=== PATIENT | female | born 1955 | race Caucasian/White ===

== ENCOUNTER 2025-08-29 08:19 | Outpatient (CLI) | payer MEDICARE, OTHER, SELFPAY ==
--- NOTE | ~2025-08-29 | DEXA_ITS ---
Bone Density Report Name: CLEMENTE MARTINEZ Age: 69 Sex: Female Ethnicity: White Date of : 1955 Indication: postmenopausal; screening for osteoporosis; inflammatory bowel disease; prior fracture; hysterectomy; Referring Provider: RAVEN FLORES Study: Bone densitometry was performed. Exam Date: August 29, 2025 Accession number: [id number] Bone Density: Region BMD T-score Z-score Classification AP Spine(L1-L4) 0.836 -1.9 0.3 Osteopenia Femoral Neck (Left) 0.519 -3.0 -1.1 Osteoporosis Total Hip (Left) 0.642 -2.5 -0.9 Osteoporosis Femoral Neck (Right) 0.507 -3.1 -1.2 Osteoporosis Total Hip (Right) 0.650 -2.4 -0.8 Osteopenia Total Hip Mean 0.646 -2.5 -0.9 Osteopenia World Health Organization criteria for BMD impression classify patients as: Normal (T-score at or above -1.0), Osteopenia (T-score between -1.0 and -2.5), or Osteoporosis (T-score at or below -2.5). 10-year Fracture Risk: FRAX not reported because: Some T-score for Spine Total or Hip Total or Femoral Neck at or below -2.5 Clinical Information Provided by Patient: Has had a low trauma fracture Has used the following medications: Vitamin D, Calcium Has the following medical conditions: Inflammatory bowel diseases, Hysterectomy Patient maximum height was 64 Menopause Age: 40 Onset of menses at age 11 Number of children 2 Impression: The patient has established osteoporosis, based on the Right Femoral Neck T-score and the existence of a prior fracture. The patient has risk factors, including: previous fracture. Discussion: HIGH RISK OF FRACTURE. BONE DENSITY IS UNDESIRABLY LOW AT ONE OR MORE SKELETAL SITES, CONSISTENT WITH POSTMENOPAUSAL OSTEOPOROSIS. This patient's lowest T-score, in a patient who has previously fractured, meets the World Health Organization's (WHO) criteria for severe osteoporosis. In untreated patients, the risk of osteoporotic fracture increases approximately two-fold for each 1.0 SD decrease in T-score. Low bone density is not the only risk factor for fracture; also consider factors such as patient's age, frailty or poor health, risk of falling, risk of injury, previous osteoporotic fracture, family history of osteoporosis, cigarette smoking, low body weight, etc. Not everyone with low bone mineral density has osteoporosis; osteomalacia and other metabolic bone disorders should also be considered. Patients who have osteoporosis should be evaluated for specific diseases and conditions (secondary causes) that may cause or contribute to bone loss. The [place] Association of Clinical Endocrinologists (AACE) and National Osteoporosis Foundation (NOF) recommend pharmacologic intervention for all postmenopausal women whose T-score is in this range. The patient should follow a healthful lifestyle (good nutrition with adequate calcium and vitamin D, and appropriate weight-bearing exercise). Follow-Up: Consider a repeat BMD and Vertebral Fracture Assessment (VFA) exam in 2 years or sooner if medically necessary, to reassess this patient's status. Reported by: YAMINI on 08/29/2025 8:44:00 AM. Reviewed, dictated and finalized at location A.
== END 2025-08-29 08:20 | disposition home or self-care (01) ==
LOC: MICIMG 08:20
PROVIDERS: PCP Family Medicine; Visit Provider Family Medicine
DX: M81.0 Age-related osteoporosis without current pathological fracture (principal); M85.88 Other specified disorders of bone density and structure, other site; M85.851 Other specified disorders of bone density and structure, right thigh
CPT/HCPCS: 77080

== ENCOUNTER 2025-08-29 09:04 | Outpatient (CLI) | payer MEDICARE, OTHER, SELFPAY ==
--- OUTSIDE RECORDS SUMMARY | 2025-08-29 09:48 | XMS_ITS | Clinical Summary ---
Author Organization [facility] Address [address] [place] [address] Phone Care Team Providers Care Tree Feller Name Role Phone Kia Morales Stephanie SMITH Primary Care Provider [phone] Allergies No known active allergies Medications aspirin EC 81 MG Tablet Delayed Response Take 81 mg by mouth. Active otherIndications :Prenori- shreel 0.625 Units by Other route. Indications : Prenori- shreel Active Calcium Carb-Cholecalcif jackeline (CALCIUM + D3) 600-200 MG-UNIT Tablet Take by mouth. Active Cetirizine HCl 10 MG Capsule Take by mouth. Active chlorthalidone (HYGROTON) 25 MG Tablet Take by mouth. 03/23/2014 Active Vitamin D3 (CHOLECALCIFEROL ) 5000 UNITS Tablet Take by mouth. Active estradiol (ESTRACE) 2 MG Tablet Take by mouth. 05/02/2014 Active nystatin-triamci nolone (MYCOLOG II) 208086-5.1 UNIT/GM-% Cream Apply. 05/09/2014 Act sonya Farrar-3 Fatty Acids (FISH OIL) 1200 MG Capsule Take by mouth. Active oxybutynin (DITROPAN) 5 MG Tablet Take by mouth. 04/06/2014 Active ketoconazole (NIZORAL) 2 % Shampoo 3 04/05/2016 Active ELIDEL 1 % Cream 3 04/05/2016 Ac tive Mirabegron ER 25 MG TABLET SR 24 HR Take by mouth. Active ENSTILAR 0.005-0.064 % Foam 08/21/2017 Active tolterodine (DETROL LA) 4 MG CAPSULE SR 24 HR Take 4 mg by mouth daily. 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 Not on file Not on file Not on kenneth e Last Filed Vital Signs Vital Sign Reading Time Taken Comments Blood Pressure 122/78 03/18/2018 10:02 AM CDT Pulse 68 03/18/2018 10:02 AM CDT Temperature - - Respiratory Rate 16 03/18/2018 10:02 AM CDT Oxygen Saturation 98% 03/18/2018 10:02 AM CDT Inhaled Oxygen Concentration - - Weight 55.3 kg (122 lb) 03/18/2018 10:02 AM CDT Height 162.6 cm (5' 4) 03/18/2018 10:02 AM CDT Body Mass Index 20.94 03/18/2018 10:02 AM CDT Plan of Treatment Health Maintenance Due Date Last Done Comments Hepatitis C Virus (HCV) Screening 1955 TdaP Immunization 1955 Cologuard 1998 Immunochemical Fecal Occult Blood 1998 Pneumococcal Immunization (5 0+ years) (1 of 1 - PCV) 2003 Zoster Immunization (1 of 2) 2003 Colonoscopy 04/05/2020 04/05/2010 Colorectal Cancer Screening 04/05/2020 Influenza Immunization (#1) 07/04/202508/03, 08/16/2015, 07/04/2013 SARS-COV-2 Immunization ( - season) 2025 07/31/2021, 01/08/2021, 12/11/2020 Respiratory Syncytial Virus (RSV) Immunization (Adult) (1 - 1-dose 75+ series) 2028 Mammogram Discontinued 02/18/2017, 02/14/2016 DEXA Bone Density Discontinued 03/13/2017 Hepatitis B Immunization Aged Out No longer eligible based on patient's age to complete this topic Human Papillomavirus (HPV) Immunization Aged Out No longer eligible based on patient's age to complete this topic Meningococcal Immunization (ACWY) Aged Out No longer eligible based on patient's age to complete this topic Rotavirus Immunization Aged Out No lo nger eligible based on patient's age to complete this topic Procedures Procedure Name Priority Date/Time Associated Diagnosis Comments [facility] BONE DENSITOMETRY AXIAL SKELETON Routine 03/13/2017 8:54 AM CDT Encounter for imaging to assess osteoporosis [facility] SCREENING BILATERAL DIGITAL W CAD Routine 02/18/2017 9:53 AM CDT Encounter for screening mammogram for malignant neoplasm of breast HM COLONOSCOPY Routine 04/05/2010 from Last 3 Months or Most Recently Relevant to Health Maintenance Results * [facility] BONE DENSITOMETRY AXIAL SKELETON (03/13/2017 8:54 AM CDT) Anatomical Region Laterality Modality BODY N/A Other 03/13/2017 2:20 PM CDT Impressions 03/13/2017 2:23 PM CDT IMPRESSION: 1. Low bone mass by WHO criteria. 2. The WHO fracture risk assessment tool (FRAX) indicates that the 10-year probability of a major osteoporotic fracture is 11.4% and the 10-year probability of a hip fracture is 2.1%. 3. Since 2013, there has been a 4.4% increase in bone mineral density in the lumbar spine and a 5.7% increase in bone mineral density in the left hip. Bone mineral density: Normal (T-score above or = -1.0) Low bone mass (T-score between -1.0 and -2.5) replaces the previously used term osteopenia Osteoporosis (T-score = or below -2.5) Medical evaluation for secondary causes of low bone mineral density may be appropriate. FRAX is a World Health Organization validated fracture risk assessment tool that calculates a person's 10 year probability of a major osteoporosis related fracture and hip fracture. According to the National Osteoporosis Foundation guidelines, postmenopausal women and men age 50 or older with low bone mass and a 10 year probability of a major osteoporosis related fracture = or greater than 20% or a 10 year probability of a hip fracture = or greater than 3% should be considered for treatment. For further information, including treatment recommendations, please refer to the 2013 ISCD Official Positions (http://www.iscd.org) and the NOF's Clinician's Guide to Prevention and Treatment of Osteoporosis (http://www.nof.org/professionals/clinical-guidelines) Narrative 03/13/2017 2:23 PM CDT EXAMINATION: DXA Bone Density Examination (Hip and Spine). HISTORY: 61-year-old post menopausal female, screening for osteoporosis. Current Height: 63 inches Maximum Height: 64 inches Weight: 128 pounds RISK FACTORS: None. COMPARISON(S): December 31, 2013 and November 20, 2011. 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 Left Hip Current Total BMD is 0.821 g/mj4C-sihvc is -1.5 Most recent prior Total BMD was 0.777 g/cm2 There has been a 5.7% increase in BMD which is statistically significant. Current femoral neck BMD is 0.712 g/ob1U-ujttb is -2.3 THIS IS AN ELECTRONICALLY VERIFIED REPORT 03/13/2017 2:20 PM: Justin Nieves M.D. Radiologist AB: RD Procedure Note Lino Doyle MD - 03/13/2017 EXAMINATION: DXA Bone Density Examination (Hip and Spine). HISTORY: 61-year-old post menopausal female, screening for osteoporosis. Current Height: 63 inches Maximum Height: 64 inches Weight: 128 pounds RISK FACTORS: None. COMPARISON(S): December 31, 2013 and November 20, 2011. 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 Left Hip Current Total BMD is 0.821 g/ei4W-flzax is -1.5 Most recent prior Total BMD was 0.777 g/cm2 There has been a 5.7% increase in BMD which is statistically significant. Current femoral neck BMD is 0.712 g/bh9L-eyrkc is -2.3 THIS IS AN ELECTRONICALLY VERIFIED REPORT 03/13/2017 2:20 PM: Justin Nieves M.D. Radiologist AB: RD IMPRESSION: 1. Low bone mass by WHO criteria. 2. The WHO fracture risk assessment tool (FRAX) indicates that the 10-year probability of a major osteoporotic fracture is 11.4% and the 10-year probability of a hip fracture is 2.1%. 3. Since 2013, there has been a 4.4% increase in bone mineral density in the lumbar spine and a 5.7% increase in bone mineral density in the left hip. Bone mineral density: Normal (T-score above or = -1.0) Low bone mass (T-score between -1.0 and -2.5) replaces the previously used term osteopenia Osteoporosis (T-score = or below -2.5) Medical evaluation for secondary causes of low bone mineral density may be appropriate. FRAX is a World Health Organization validated fracture risk assessment tool that calculates a person's 10 year probability of a major osteoporosis related fracture and hip fracture. According to the National Osteoporosis Foundation guidelines, postmenopausal women and men age 50 or older with low bone mass and a 10 year probability of a major osteoporosis related fracture = or greater than 20% or a 10 year probability of a hip fracture = or greater than 3% should be considered for treatment. For further information, including treatment recommendations, please refer to the 2013 ISCD Official Positions (http://www.iscd.org) and the NOF's Clinician's Guide to Prevention and Treatment of Osteoporosis (http://www.nof.org/professionals/clinical-guidelines) us Rachel Bolton Randy MANAGER HOS[facility], [facility] IMG DEXA ORDERABLES Rhonda l Result * [facility] SCREENING BILATERAL DIGITAL W CAD (02/18/2017 9:53 AM CDT) Anatomical Region Laterality Modality breast Bilateral Mammography 02/18/2017 9:34 AM CDT Narrative 02/19/2017 8:21 AM CDT - [facility] SCREENING BILATERAL DIGITAL W CAD BILATERAL DIGITAL SCREENING MAMMOGRAM WITH CAD WITH MEDIOLATERAL OBLIQUE CRANIOCAUDAL: 02/18/2017 The study was acquired using digital technology and interpreted from soft copy. Current study was also evaluated with ICAD version 7.2. CLINICAL: Routine screening. Patient has no complaints. No personal history of cancer. No family history of breast cancer. COMPARISONS: Comparison is made to exams dated: 02/14/2016, 01/03/2015, and 12/21/2013 [facility]. BREAST TISSUE:The tissue of both breasts is extremely dense, which lowers the sensitivity of mammography. FINDINGS: There are benign calcifications in both breasts. No significant masses, calcifications, or other findings are seen in either breast. There has been no significant interval change. IMPRESSION: BI-RAD 2 BENIGN There is no mammographic evidence of malignancy. A 1 year screening mammogram is recommended. The patient has been or will be contacted. The patient will be entered into a reminder system with a target due date of 1 year for her next screening exam. Electronically signed by: Helen cleveland/radha:02/18/2017 13:39:27 Auto Carrier Driver: Romi BAUER(Stephanie)([place]), [facility] letter sent: Normal Exam Reading location: [facility] BI-RADS: 2 Benign Procedure Note Helen Perez MD - 02/19/2017 - [facility] SCREENING BILATERAL DIGITAL W CAD BILATERAL DIGITAL SCREENING MAMMOGRAM WITH CAD WITH MEDIOLATERAL OBLIQUE CRANIOCAUDAL: 02/18/2017 The study was acquired using digital technology and interpreted from soft copy. Current study was also evaluated with ICAD version 7.2. CLINICAL: Routine screening. Patient has no complaints. No personal history of cancer. No family history of breast cancer. COMPARISONS: Comparison is made to exams dated: 02/14/2016, 01/03/2015, and [facility]. BREAST TISSUE:The tissue of both breasts is extremely dense, which lowers the sensitivity of mammography. FINDINGS: There are benign calcifications in both breasts. No significant masses, calcifications, or other findings are seen in either breast. There has been no significant interval change. IMPRESSION: BI-RAD 2 BENIGN There is no mammographic evidence of malignancy. A 1 year screening mammogram is recommended. The patient has been or will be contacted. The patient will be entered into a reminder system with a target due date of 1 year for her next screening exam. Electronically signed by: Helen cleveland/radha:02/18/2017 13:39:27 Auto Carrier Driver: Romi BAUER(Stephanie)(M), [facility] letter sent: Normal Exam Reading location: [facility] BI-RADS: 2 Benign us Rachel Padilla APRN, [employer] [facility] MAMMO ORDERABLES Fin al Result * [facility] COLONOSCOPY (04/05/2010) us Clifford Hu Jr., MD PROCEDURE/MINOR GUS GICAL ORDERABLES Final Result from Last 3 Months or Most Recently Relevant to Health Maintenance Care Teams Tree Feller Relationship Specialty Start Date End Date Kia Morales APRN [address] [place] [address] PCP - General Family Medicine 02/14/17
--- OUTSIDE RECORDS SUMMARY | 2025-08-29 09:48 | XMS_ITS | Encounter Summary ---
Author Organization [facility] Address [address] [place] [id number] Care Team Providers Care Audio Visual Equipment Rental Clerk Name Role Phone Yara Schneider MD Primary Care Provider [phone] Mauri Roberts MD Primary Care Provider [phone] Encounter Details Date Type Department Care Team (Late st Contact Info) Description 12/02/2022 Zafgen Message Enc [facility] Medical Group Family Medicine [facility] [address] [place] [address] Yara Schneider MD [address] [place] [address] Ears Social History Tobacco Use Types Packs/Day Years Used Date Smoking Tobacco: Never Smokeless Tobacco: Never Alcohol Use Standard Drinks/Week Comments Yes 1.7 (1 standard drink = 0.6 oz p ure alcohol) Drink socially AUDIT-C Answer Date Recorded Frequency of Alcohol Consumption 2-3 times a wee k 09/28/2019 Average Number of Drinks 1 or 2 019 Frequency of Binge Drinking Not on file 09/04 PHQ-2 Answer Date Recorded Patient Health Questionnaire-2 Score 0 12/06/2022 Comments No Sex and Gender Information Value Date Recorded Sex Assigned at Female 08/21/2023 3:11 PM CDT Legal Sex Female 3:36 PM SOCIAL SERVICE MANAGER Gender Identity Female 11/15/2021 12:05 PM SOCIAL SERVICE MANAGER Sexual Orientation Straight 11/15/2021 12 :05 PM SOCIAL SERVICE MANAGER COVID-19 Exposure Response Date Recorded In the last 10 days, have yo u been in contact with someone who was confirmed or suspected to have Coronavirus/COVID-19? No / Unsure 12/03/2022 8:17 AM SOCIAL SERVICE MANAGER documented as of this encounter Plan of Treatment Not on file documented as of this encounter Visit Diagnoses Not on filedocumented in this encounter Additional Health Concerns Assessment Noted Time PHQ-9 Depression Total Score: 3 11/21/19 23 9:28 AM SOCIAL SERVICE MANAGER documented as of this encounter Care Teams Audio Visual Equipment Rental Clerk Relationship Specialty Start Date End Date Yara Schneider MD PCP - General FAMILY PRACTICE 10/02/20 09/30/24 Mauri Roberts MD [address] [place] [id number] PCP - General FAMILY PRACTICE 11/09/24 documented as of this encounter
--- OUTSIDE RECORDS SUMMARY | 2025-08-29 09:48 | XMS_ITS | Clinical Summary ---
Author Organization [facility] Address [facility] [place] [address] Care Team Providers Care Sports Teacher Name Role Phone Raven Flores MD Primary Care Provider [phone] Allergies No known active allergies Medications Nutritional Supplements (NUTRITIONAL SUPPLEMENT OR) Take 1 tablet by mouth 2 (two) times a day. Restore eye promise Active omeprazole (PRILOSEC) 40 MG capsule Take 1 capsule (40 mg total) by mouth daily. 3 Active calcium-vitamin D-vitamin K (VIACTIV) 500-500-40 MG-UNT-MCG Chew Tab Chew 1 tablet by mouth daily. Active fexofenadine (WENCESLAO ALLERGY) 180 MG tabletIndications:C hronic cough,Allergic rhinitis, unspecified seasonality, unspecified trigger Take 1 tablet (180 mg total) by mouth daily. 30 tablet 3 Active azelastine (ASTELIN) 0.1 % nasal sprayIndications:Ch ronic cough,Allergic rhinitis, unspecified seasonality, unspecified trigger USE 1 SPRAY IN EACH NOSTRIL TWICE DAILY DIRECTED 30 mL 5 4 Active FLUoxetine (PROZAC) 40 MG capsuleIndications: Mild major depression Take one 40mg tab with one 20mg tab for total of 60mg PO QD 90 capsule 1 4 Active FLUoxetine (PROZAC) 20 MG capsuleIndications: Mild major depression Take one 20mg tab with one 40mg tab for total of 60mg PO QD 90 capsule 1 4 Active atorvastatin (LIPITOR) 20 MG tabletIndications:H yperlipidemia, unspecified hyperlipidemia type TAKE 1 TABLET(20 MG) BY MOUTH EVERY NIGHT AT BEDTIME 90 tablet 1 4 Active tolterodine LA (DETROL LA) 4 MG 24 hr capsuleIndications: Overactive bladder TAKE 1 CAPSULE(4 MG) BY MOUTH DAILY 90 capsule 1 4 Active Active Problems Problem Noted Date Diagnosed Date Closed displaced oblique fra cture of shaft of left humerus with delayed healing 11/11/2023 Hiatal hernia 04/16/2023 Acid reflux 12/17/2022 Cough 05/16/2022 Hyperlipidemia, unspecified hyperlipidemia type 09/28/2019 Allergic rhinitis, unspecifi ed seasonality, unspecified trigger 09/28/2019 Macular degeneration, unspec ified laterality, unspecified type 09/28/2019 Overactive bladder 09/28/2019 Other allergic contact dermatitis 04/27/2019 Osteoporosis 01/04/2014 Overview (05/19/2020): Osteoporosis Hypertension 01/06/2013 Overview (05/19/2020): Hypertension Angioedema 01/06/2013 Overview (05/19/2020): Angioedema Immunizations Immunization Administration Dates Next Due Arexvy Respiratory Syncytial Virus (RSV, adjuvanted) 0.5 mL, PF 08/21/2023 Flucelvax 6 Months+ (Prefill ed Syringe) 08/04/2018,08/20/2017 Fluzone High Dose - >Age 65 (Prefilled Syringe) 07/17/2023,07/29/2020,07/20/2019 Influenza (Generic) 07/14/2019, 4,08/04/2013,2012 Influenza Adult (Generic) 08/25/2022,,08/16/2015,2012 MMR (Generic) 04/14/2019 MMR (MMRII) 03/08/2019 Measles, Mumps & Rubella Vac Sc 03/08/2019 Jkoyewz-Hbycv-Cvfskav-Varicell Sc Inj 04/14/2019 PFIZER COVID-19 (GUZMAN CAP), MRNA, LNP-S, PF, 30 MCG/0.3 ML CHANTAL-SUCROSE, IM 03/12/2022 PFIZER COVID-19 (ORIGINAL FORMULATION, PURPLE CAP) mRNA, LNP-S, PF, 30 MCG/0.3 ML DOSE 07/31/2021,01/08/2021,12/11/2020 Pneumococcal (Pneumovax 23) 07/29/2020, 9 Pneumococcal (Prevnar 20) 08/25/2022 Shingrix 06/23/2019,04/14/2019 Td (TDVAX) 09/28/2019 Tetanus/Diptheria 09/28/2019 Family History Medical History Relation Comments Heart Disease Mother Many stints due to smoking Miscarriages / Stillbirths Mother Glaucoma Sister Heart Disease Sister Relation Status Comments Mother Sister Social History Tobacco Use Types Packs/Day Years Used Date Smoking Tobacco: Never Passive Smoke Exposure: Never Smokeless Tobacco: Never Tobacco Cessation:Counseling Given: Yes Comments:Never Smoked Alcohol Use Standard Drinks/Week Comments Yes 1.7 (1 standard drink = 0.6 oz p ure alcohol) Drink socially AUDIT-C Answer Date Recorded Frequency of Alcohol Consumption 2-3 times a wee k 09/28/2019 Average Number of Drinks 1 or 2 019 Frequency of Binge Drinking Not on file 09/04 PHQ-2 Answer Date Recorded Patient Health Questionnaire-2 Score 0 01/19/2024 Comments No Sex and Gender Information Value Date Recorded Sex Assigned at Female 08/21/2023 3:11 PM CDT Legal Sex Female 3:36 PM GPS NAVIGATION INSTALLER Gender Identity Female 11/15/2021 12:05 PM GPS NAVIGATION INSTALLER Sexual Orientation Straight 11/15/2021 12 :05 PM GPS NAVIGATION INSTALLER Last Filed Vital Signs Vital Sign Reading Time Taken Comments Blood Pressure 140/80 03/15/2024 11:30 AM CDT Pulse 73 03/15/2024 11:20 AM CDT Temperature 36.2 C (97.2 F) 03/15/2024 11:20 AM CDT Respiratory Rate 16 03/15/2024 11:20 AM CDT Oxygen Saturation 99% 03/15/2024 11:20 AM CDT ra Inhaled Oxygen Concentration - - Weight 59.9 kg (132 lb) 03/15/2024 11:20 AM CDT Height 162.6 cm (5' 4) 03/15/2024 11:20 AM CDT Body Mass Index 22.66 03/15/2024 11:20 AM CDT Plan of Treatment Health Maintenance Due Date Last Done Comments Annual Medicare Wellness Visit 2018 DTaP, Tdap and Td Vaccines (1 - Tdap) 09/29/2019 09/28/2019, 09/28/2019 PHQ-2 (Physician [place]) 11/03/2024 01/19/2024 COVID-19 Vaccine ( season) 2025 07/28/2023, 02/28/2023, 08/25/2022, Additional history exists Influenza Adult (#1) 2025 07/17/2023, 08/25/2022, 07/26/2021, Additional history exists Mammogram Screening 01/24/2027 01/24/2025, 01/21/2024, 12/03/2022, Additional history exists Colorectal Cancer Screening Colonoscopy (10 Years) 07/13/2034 07/13/2024, 07/13/2024, 07/23/2021 Zoster Vaccines Completed 06/23/2019, 04/14/2019 Pneumococcal Vaccine: 50+ Years Completed 08/25/2022, 07/29/2020, 06/23/2019 Dexa Scan (General) Completed 12/03/2022, 03/13/2017, 03/13/2017 RSV Immunization or 60+ Years Completed 08/21/2023 Hepatitis C Completed 01/13/2024 Hepatitis A Vaccines Aged Out No long er eligible based on patient's age to complete this topic Meningococcal B Vaccine Aged Out No l onger eligible based on patient's age to complete this topic Meningococcal Vaccine Aged Out No vero neel eligible based on patient's age to complete this topic RSV Immunizations Under 20 Months Aged Out No longer eligible based on patient's age to complete this topic Medical Devices Implanted Type Area Sales And Marketing Professional Device Identifier Shelf Expiration Date Model / Serial / Lot 12 Hole Plate Implanted:Qty: 1 on 11/14/2023 by Marshall Lynn MD at [facility] Plate Left: Humerus DEPUY SY[employer]ES [id number] / / Non-Locking Screw Implanted:Qty: 2 on 11/14/2023 by Marshall Lynn MD at [facility] Screw Left: Humerus DEPUY 204.820 / / Non-Locking Screw Implanted:Qty: 3 on 11/14/2023 by Marshall Lynn MD at [facility] Screw Left: Humerus DEPUY SYNTHES 204.822 / / Non-Locking Screw Implanted:Qty: 2 on 11/14/2023 by Marshall Lynn MD at [facility] Screw Left: Humerus DEPUY SYNTHES 204.826 / / Non-Locking Screw Implanted:Qty: 1 on 11/14/2023 by Marshall Lynn MD at [facility] Screw Left: Humerus DEPUY SYNTHES 204.830 / / Non-Locking Screw Implanted:Qty: 1 on 11/14/2023 by Marshall Lynn MD at [facility] Screw Left: Humerus DEPUY SYNTHES 204.824 / / Procedures Procedure Name Priority Date/Time Associated Diagnosis Comments MG SCREENING W FRANSISCO HOLLIE DIGI Routine 01/24/2025 2:12 PM CDT Visit for screening mammogram COLONOSCOPY GENERIC (SCAN ORDER) 07/13/2024 HEPATITIS C ANTIBODY W/RFX TO HCV RNA Routine 01/13/2024 9:11 AM CDT Encounter for hepatitis C screening test for low risk patient BONE DENSITY/DEXA Routine 12/03/2022 9:5 0 AM GPS NAVIGATION INSTALLER Multiple closed fractures of pelvis without disruption of pelvic ring with routine healing, subsequent encounter Osteopenia of multiple sites from Last 3 Months or Most Recently Relevant to Health Maintenance Results * MG SCREENING W FRANSISCO HOLLIE DIGI (01/24/2025 2:12 PM CDT) Anatomical Region Laterality Modality Breast Bilateral Mammography 01/24/2025 2:24 PM CDT Impressions 01/24/2025 3:04 PM CDT ===== IMPRESSION: ===== 1. Stable mammographic appearance with no new findings to suggest malignancy in either breast. Assessment: ACR BI-RADS 2 - BENIGN FINDING(S) Recommendation: 1:Routine Screening Bilateral Comments: Ordered By: RAVEN FLORES Interpreted By: Giovani Crouch MD, 01/24/2025 2:24 PM Narrative 01/24/2025 3:[address] PM [address] [address] Examination: Digital bilateral screening mammogram with 3D Tomosynthesis Exam Date/Time: 01/24/2025 1:58 PM Reason For Exam: scr No prior breast procedures. No personal or family history of breast cancer. No current complaints. Comparison: Mammograms from 01/21/2024 12/03/2022 11/22/2021 Technique: Digital screening mammography of both breasts was performed in addition to 3-D Tomosynthesis technique. This study was read with the assistance of a computer-aided detection system. Tissue density: The breasts are heterogeneously dense, which may obscure small masses. Findings: Benign round calcifications again seen bilaterally. No suspicious interval change in parenchymal pattern from prior studies. There is no new focal asymmetry, dominant mass lesion, area of skin thickening, or cluster of suspicious appearing calcifications in either breast to suggest malignancy. us Raven Flores MD MAMMO Final Result * COLONOSCOPY GENERIC (SCAN ORDER) (07/13/2024) 07/13/2024 [facility] Scanned SCANNING Final Resu lt * HEPATITIS C ANTIBODY W/RFX TO HCV RNA ([facility] ONLY) (01/13/2024 9:11 AM CDT) HEPATITIS C AB NON-REACT SEKOU NON-REACT SEKOU [facility] Comment: HCV antibody was non-reactive. There is no laboratory evidence of HCV infection. In most cases, no further action is required. However, if recent HCV exposure is suspected, a test for HCV RNA (test code 51446) is suggested. For additional information please refer to http://education.numberFire/faq/GEA55k4 (This link is being provided for informational/ educational purposes only.) 01/13/2024 9:11 AM CDT 01/13/2024 9:11 AM CDT Narrative [facility] [place] [facility] - 01/14/2024 4:15 AM CDT FASTING:YES FASTING: YES Resulting Agency Comment Performing Organization Information: Site ID: [place] Name: [facility] Address: [address] [place] [address] Director: Eve Medina MD Yara Schneider MD LABORATORY Final Result [facility] [place] [facility] [address] [place] [address], * BONE DENSITY/DEXA (12/03/2022 9:50 AM GPS NAVIGATION INSTALLER) Anatomical Region Laterality Modality Bone Mammography 12/03/2022 9:59 AM GPS NAVIGATION INSTALLER Impressions 12/03/2022 10:00 AM GPS NAVIGATION INSTALLER Impression: Osteopenia of the spine. Osteoporosis of the bilateral femoral necks. Fracture risk is high. Treatment is advised. Ordered By: YARA SCHNEIDER Interpreted By: Nasim Foster Jr, MD, 12/03/2022 9:59 AM Narrative 12/03/2022 10:00 AM GPS NAVIGATION INSTALLER Date: 12/03/2022. Examination: DEXA Bone densitometry. Comparison: No comparisons. Clinical history: Osteoporosis screening. History of pelvic fractures. Technique: DEXA bone minimal density evaluation was performed in the AP projection over the lumbar spine and over both hips in the AP projection utilizing standard imaging techniques. Assessment: The BMD measured at the AP spine L1-L4 is 0.909 g/cm2 with a T-score of -1.3 and a Z-Score of 0.8. The patient is considered osteopenic according to World Health Organization (WHO) criteria. Bone density is between 10 and 25% below young normal. Fracture risk is moderate. Treatment is advised. The BMD measured at the femur total left is 0.663 g/cm2 with a T-score of -2.3 and a Z-Score of -0.8. The bone mineral density for the neck is 0.530 g/sq cm with a T score of -2.9 which is osteoporotic in this region. Osteopenia and near osteoporosis for the total bone mineral density of the left hip. The 10 year fracture risk for major osteoporotic fracture is 24%. The 10 year fracture risk for hip fracture is 6.8%. The BMD measured at the femur total right is 0.733 g/cm2 with a T-score of -1.7 and aZ-Score of -0.3. The patient is considered osteopenic according to World Health Organization (WHO) criteria. Bone density is between 10 and 25% below young normal. Fracture risk is moderate. Treatment is advised. However, the bone mineral density for the neck is 0.490 g/sq cm with a T score of -3.2. This is osteoporotic in this region. The 10 year fracture risk for major osteoporotic fracture is 29%. The 10 year fracture risk for hip fracture is 10%. Recommendations: All patients should ensure an adequate intake of dietary calcium and vitamin D. The NOF recommend adults under the age of 50 need 1000 mg of calcium and 400-800 IU of vitamin D daily. Effective therapy for the prevention and treatment of osteoporosis include biphosphonates. Follow-up: People with diagnosed cases of osteoporosis or at high risk for fracture should have regular bone mineral density test. For patients eligible for Medicare, routine testing is allowed once every 2 years. Testing frequency can be increased to one year for patients who have rapidly progressing disease, those who are receiving or discontinuing medical therapy to restore bone mass, or have additional risk factors. Based on these results, a followup exam is recommended in November 2023 Procedure Note Cristo Spears MD / Nasim Foster MD - 12/03/2022 Date: 12/03/2022. Examination: DEXA Bone densitometry. Comparison: No comparisons. Clinical history: Osteoporosis screening. History of pelvic fractures. Technique: DEXA bone minimal density evaluation was performed in the APprojection over the lumbar spine and over both hips in the AP projectionutilizing standard imaging techniques. Assessment: The BMD measured at the AP spine L1-L4 is 0.909 g/cm2 with a T-score of-1.3 and a Z-Score of 0.8. The patient is considered osteopenicaccording to World Health Organization (WHO) criteria. Bone density isbetween 10 and 25% below young normal. Fracture risk is moderate.Treatment is advised. The BMD measured at the femur total left is 0.663 g/cm2 with a T-score of-2.3 and a Z-Score of -0.8. The bone mineral density for the neck is 0.530g/sq cm with a T score of -2.9 which is osteoporotic in this region.Osteopenia and near osteoporosis for the total bone mineral density of theleft hip. The 10 year fracture risk for major osteoporotic fracture is24%. The 10 year fracture risk for hip fracture is 6.8%. The BMD measured at the femur total right is 0.733 g/cm2 with a T-score of-1.7 and aZ-Score of -0.3. The patient is considered osteopenicaccording to World Health Organization (WHO) criteria. Bone density isbetween 10 and 25% below young normal. Fracture risk is moderate.Treatment is advised. However, the bone mineral density for the neck is0.490 g/sq cm with a T score of -3.2. This is osteoporotic in this region.The 10 year fracture risk for major osteoporotic fracture is 29%. The 10year fracture risk for hip fracture is 10%. Recommendations: All patients should ensure an adequate intake of dietary calcium andvitamin D. The NOF recommend adults under the age of 50 need 1000 mg ofcalcium and 400-800 IU of vitamin D daily. Effective therapy for theprevention and treatment of osteoporosis include biphosphonates. Follow-up: People with diagnosed cases of osteoporosis or at high risk for fractureshould have regular bone mineral density test. For patients eligible forMedicare, routine testing is allowed once every 2 years. Testing frequencycan be increased to one year for patients who have rapidly progressingdisease, those who are receiving or discontinuing medical therapy torestore bone mass, or have additional risk factors. Based on these results, a followup exam is recommended in November 2023 Impression: Osteopenia of the spine. Osteoporosis of the bilateral femoral necks.Fracture risk is high. Treatment is advised. Ordered By: YARA SCHNEIDER Interpreted By: Nasim Foster Jr, MD, 12/03/2022 9:59 AM Yara Schneider MD DEXA Final Result from Last 3 Months or Most Recently Relevant to Health Maintenance Insurance MEDICARE [employer] Care Teams Sports Teacher Relationship Specialty Start Date End Date Raven Flores MD [address] [place] [address] PCP - General FAMILY PRACTICE 11/09/24
--- OUTSIDE RECORDS SUMMARY | 2025-08-29 09:49 | XMS_ITS | Encounter Summary ---
Author Organization [facility] Address [address] [facility] [place] [address] Care Team Providers Care Inspector Barrel Name Role Phone Wally Carranza MD Primary Care Provider Unav ailable Encounter Details Date Type Department Care Team (Late st Contact Info) Description 12/24/2018 Lab Requisition [facility] [address] [facility] [place] [address] Amanda De La Rosa MD [address] [place] [address] Social History Tobacco Use Types Packs/Day Years Used Date Smoking Tobacco: Never Smokeless Tobacco: Never Alcohol Use Standard Drinks/Week Comments Yes 0 (1 standard drink = 0.6 oz pur e alcohol) social Comments No Sex and Gender Information Value Date Recorded Sex Assigned at Female 11/01/2021 2:46 PM CURLING MACHINE OPERATOR Legal Sex Female 9:27 AM CDT Gender Identity Female 11/01/2021 2:46 PM CURLING MACHINE OPERATOR Sexual Orientation Straight 11/01/2021 2: 46 PM CURLING MACHINE OPERATOR documented as of this encounter Plan of Treatment Not on file documented as of this encounter Procedures Procedure Name Priority Date/Time Associated Diagnosis Comments DERMATOPATH TECHNICAL REPORT Routine 12/23/2018 12:00 AM CURLING MACHINE OPERATOR documented in this encounter Results * DERMATOPATH TECHNICAL REPORT (12/23/2018 12:00 AM CURLING MACHINE OPERATOR) Case Report Dermatopathology Report Case: [id number] Authorizing Provider: Amanda De La Rosa MD Collected: 12/23/2018 12:00 AM Pathologist: Kenterll Nj MD Received: 12/24/2018 08:03 AM Specimen: Skin, right preauricular 9 5:37 PM CURLING MACHINE OPERATOR DERMATOPATHOLOGY LABORATORY Addendum 1 At the request of the diagnosing physician, the technical component for PAS was performed by [facility] Dermatopathology Laboratory. 9 5:37 PM [facility] DERMATOPATHOLOGY LABORATORY Addendum electronically signed by Kentrell Nj MD on 12/29/2018 at 1737 CURLING MACHINE OPERATOR Clinical History [place] scaly patches @ eyelids and ears, ACD, CTD, photo drug. 9 5:37 PM [facility] DERMATOPATHOLOGY LABORATORY Gross Description Specimen A: Received is one formalin filled container labeled with the patient's name and designated right preauricular. The specimen consists of a punch measuring [id number]. Jar 0. [facility] Dermatopathology Laboratory performed the technical component only. 9 5:37 PM [facility] DERMATOPATHOLOGY LABORATORY Embedded Images 9 5:37 PM [facility] DERMATOPATHOLOGY LABORATORY DISCLAIMER An external and internal positive and negative controls are appropriate for the histochemical, immunohistochemical and immunofluorescence stain(s) in this case (if any), except where stated explicitly. The performance characteristics of the stain(s) cited in this report were developed and its performance characteristic determined by the Dermatopathology Laboratory at [facility], directed by Dr. Tamara Nj. These tests need not be, and therefore are not, approved by the [place] Food and Drug Administration. The tests are used for clinical purposes. 9 5:37 PM CURLING MACHINE OPERATOR DERMATOPATHOLOGY LABORATORY at 1543 CURLING MACHINE OPERATOR Pathology/Cytolog y TISSUE SPECIMEN FROM SKIN / Unknown 12/23/2018 12/24/2018 8:03 AM CURLING MACHINE OPERATOR Amanda De La Rosa MD LAB - PATHOLOGY/CYTOLOGY ORD ERABLES Edited Result - Final DERMATOPATHOLOGY LABORATORY [facility] - Department of Dermatology [address] [place] [address], 5th Floor Lab [address] [phone] documented in this encounter Visit Diagnoses Not on filedocumented in this encounter Care Teams Inspector Barrel Relationship Specialty Start Date End Date Wally Carranza MD PCP - General 04/27/19 documented as of this encounter
--- OUTSIDE RECORDS SUMMARY | 2025-08-29 09:49 | XMS_ITS | Encounter Summary ---
Author Organization [facility] Address [address] [place] [address] Care Team Providers Care Digital Sales Assistant Name Role Phone Yara Schneider MD Primary Care Provider [phone] Mauri Roberts MD Primary Care Provider [phone] Encounter Details Date Type Department Care Team (Late st Contact Info) Description 04/28/2022 TheFriendMail Message Enc [facility] Medical Group Family Medicine [facility] [address] [place] [address] Yara Schneider MD [address] [place] [address] Fluoxetine Social History Tobacco Use Types Packs/Day Years [...] on file 09/04 PHQ-2 Answer Date Recorded PHQ-2 Score - If the patient scores above 3, please move on to questions 3-9 2 05/01/2022 Comments No Sex and Gender Information Value Date Recorded Sex Assigned at Female 08/21/2023 3:11 PM CDT Legal Sex Female 3:36 PM CAUSTIC ROOM OPERATOR Gender Identity Female 11/15/2021 12:05 PM CAUSTIC ROOM OPERATOR Sexual Orientation Straight 11/15/2021 12 :05 PM CAUSTIC ROOM OPERATOR COVID-19 Exposure Response Date Recorded In the last 10 days, have yo u been in contact with someone who was confirmed or suspected to have Coronavirus/COVID-19? No / Unsure 04/12/2022 8:22 AM CDT documented as of this encounter Progress Notes * Yara Schneider MD - 04/30/2022 2:57 PM CDT Video visit this week on Fri or please. Thanks! ~Dr Gutierrez documented in this encounter Plan of Treatment Not on file documented as of this encounter Visit Diagnoses Not on filedocumented in this encounter Additional Health Concerns Assessment Noted Time PHQ-9 Depression Total Score: 6 04/12/20 22 8:27 AM CDT documented as of this encounter Care Teams Digital Sales Assistant Relationship Specialty Start Date End Date Yara Schneider MD PCP - General FAMILY PRACTICE 10/02/20 09/30/24 Mauri Roberts MD [address] [place] [address] PCP - General FAMILY PRACTICE 11/09/24 documented as of this encounter
--- OUTSIDE RECORDS SUMMARY | 2025-08-29 09:49 | XMS_ITS | Encounter Summary ---
Author Organization [facility] Address [address] [place] [address] Care Team Providers Care Mortising Machine Operator Name Role Phone Yara Schneider MD Primary Care Provider [phone] Mauri Roberts MD Primary Care Provider [phone] Encounter Details Date Type Department Care Team (Latest Contact Info) Description 02/24/2024 Milestone [employer] Message Enc [facility] Medical Group Multispecialty Care - [facility] [address] [place] [address] Garth Mac DO [address] [place], [place] [address] Physical Therapy Social History Tobacco Use Types Packs/Day Years Used Date Smoking Tobacco: Never Passive Smoke Exposure: Never Smokeless Tobacco: Never Comments:Never Smoked Alcohol Use Standard Drinks/Week Comments [...] PM CDT Legal Sex Female 3:36 PM QM NURSE Gender Identity Female 11/15/2021 12:05 PM QM NURSE Sexual Orientation Straight 11/15/2021 12 :05 PM QM NURSE documented as of this encounter Plan of Treatment Not on file documented as of this encounter Visit Diagnoses Not on filedocumented in this encounter Additional Health Concerns Assessment Noted Time PHQ-9 Depression Total Score: 0 01/19/20 24 9:32 AM CDT documented as of this encounter Care Teams Mortising Machine Operator Relationship Specialty Start Date End Date Yara Schneider MD PCP - General FAMILY PRACTICE 10/02/20 09/30/24 Mauri Roberts MD [address] [place] [address] PCP - General FAMILY PRACTICE 11/09/24 documented as of this encounter
--- OUTSIDE RECORDS SUMMARY | 2025-08-29 09:49 | XMS_ITS | Encounter Summary ---
Author Organization [facility] Address [address] [place] [address] Care Team Providers Care Medical Appointment Clerk Name Role Phone Yara Schneider MD Primary Care Provider [phone] Mauri Roberts MD Primary Care Provider [phone] Encounter Details Date Type Department Care Team (Late st Contact Info) Description 01/02/2024 Immunetics Message Enc [facility] Medical Group Orthopedic & Sports Medicine - [place] [address] [place] [address] Tomas, [facility] Provider Bone Stimulator Social History Tobacco Use Types Packs/Day Years Used Date Smoking Tobacco: Never Passive Smoke Exposure: Never Smokeless Tobacco: Never Comments:Never Smoked Alcohol Use Standard Drinks/Week Comments Yes 1.7 (1 standard drink = 0.6 oz p ure alcohol) Drink socially AUDIT-C Answer Date Recorded Frequency of Alcohol Consumption 2-3 times a solitario turner 09/28/2019 Average Number of Drinks 1 or 2 019 Frequency of Binge Drinking Not on file 09/04 PHQ-2 Answer Date Recorded Patient Health Questionnaire-2 Score 1 11/06/2023 Comments No Sex and Gender Information Value Date Recorded Sex Assigned at Female 08/21/2023 3:11 PM CDT Legal Sex Female 3:36 PM CANVAS GOODS MAKER Gender Identity Female 11/15/2021 12:05 PM CANVAS GOODS MAKER Sexual Orientation Straight 11/15/2021 12 :05 PM CANVAS GOODS MAKER documented as of this encounter Plan of Treatment Not on file documented as of this encounter Visit Diagnoses Not on filedocumented in this encounter Additional Health Concerns Assessment Noted Time PHQ-9 Depression Total Score: 3 10/06/20 23 8:54 AM CANVAS GOODS MAKER documented as of this encounter Care Teams Medical Appointment Clerk Relationship Specialty Start Date End Date Yara Schneider MD PCP - General FAMILY PRACTICE 10/02/20 09/30/24 Mauri Roberts MD [address] [place] [address] PCP - General FAMILY PRACTICE 11/09/24 documented as of this encounter
--- OUTSIDE RECORDS SUMMARY | 2025-08-29 09:49 | XMS_ITS | Encounter Summary ---
Author Organization [facility] Address [address] [facility] [place] [address] Care Team Providers Care Poker Supervisor Name Role Phone Wally Carranza MD Primary Care Provider Unav ailable Encounter Details Date Type Department Care Team (Late st Contact Info) Description 03/17/2020 Lab Requisition [facility] [address] [facility], [place] [address] Amanda De La Rosa MD [address] [place] [address] Social History Tobacco Use Types Packs/Day Years Used Date Smoking Tobacco: Never Smokeless Tobacco: Never Alcohol Use Standard Drinks/Week Comments Yes 0 (1 standard drink = 0.6 oz pur e alcohol) social Comments No Sex and Gender Information Value Date Recorded Sex Assigned at Female 11/01/2021 2:46 PM SKILLED NURSING FACILITY COUNSELOR Legal Sex Female 9:27 AM CDT Gender Identity Female 11/01/2021 2:46 PM SKILLED NURSING FACILITY COUNSELOR Sexual Orientation Straight 11/01/2021 2: 46 PM SKILLED NURSING FACILITY COUNSELOR documented as of this encounter Plan of Treatment Not on file documented as of this encounter Procedures Procedure Name Priority Date/Time Associated Diagnosis Comments DERMATOPATHOLOGY Routine 03/16/2020 12:0 0 AM CDT documented in this encounter Results * DERMATOPATHOLOGY (03/16/2020 12:00 AM CDT) Case Report Dermatopathology Report Case: [id number] Authorizing Provider: Amanda De La Rosa MD Collected: 03/16/2020 12:00 AM Ordering Location: [facility] Lab Received: 03/17/2020 11:43 AM Pathologist: Jami Alejo MD Specimen: Skin, right jawline 0 1:20 PM CDT DERMATOPATHOLOGY LABORATORY Final Diagnosis Specimen A. SKIN, right jawline: RUPTURED EPIDERMOID CYST (L72.0) 0 1:20 PM CDT DERMATOPATHOLOGY LABORATORY at 1320 CDT Clinical History EIC R/O atypia, growing, painful. Cystic nodule. 0 1:20 PM CDT DERMATOPATHOLOGY LABORATORY Gross Description Specimen A: Received is one formalin filled container labeled with the patient's name and designated right jawline. The specimen consists of a punch measuring [id number], bisected and submitted with 2 pieces measuring [id number] & [id number]. Jar 0. 0 1:20 PM CDT DERMATOPATHOLOGY LABORATORY Microscopic Description Specimen A. SKIN, right jawline: Within the dermis, there is an infiltrate composed of lymphocytes and histiocytes, including multinucleated type giant cells. Some histiocytes contain flakes of material consistent with keratin. 0 1:20 PM CDT DERMATOPATHOLOGY LABORATORY Disclaimer An external and internal positive and negative controls are appropriate for the histochemical, immunohistochemical and immunofluorescence stain(s) in this case (if any), except where stated explicitly. The performance characteristics of the stain(s) cited in this report were developed and its performance characteristic determined by the Dermatopathology Laboratory at [facility], directed by Dr. Tamara Nj. These tests need not be, and therefore are not, approved by the [place] Food and Drug Administration. The tests are used for clinical purposes. Billing Codes Specimen Charges Stain Charges 31723 1 0 1:20 PM CDT DERMATOPATHOLOGY LABORATORY Embedded Images 0 1:20 PM CDT DERMATOPATHOLOGY LABORATORY Pathology/Cytolog y TISSUE SPECIMEN FROM SKIN / Unknown 03/16/2020 03/17/2020 11:43 AM CDT Amanda De La Rosa MD LAB - PATHOLOGY/CYTOLOGY ORD ERABLES Final Result DERMATOPATHOLOGY LABORATORY [facility] - Department of Dermatology [facility]/[address] [phone] documented in this encounter Visit Diagnoses Not on filedocumented in this encounter Care Teams Poker Supervisor Relationship Specialty Start Date End Date Wally Carranza MD PCP - General 04/27/19 documented as of this encounter
--- OUTSIDE RECORDS SUMMARY | 2025-08-29 09:49 | XMS_ITS | Encounter Summary ---
Author Organization [facility] Address [address] [place] [address] Care Team Providers Care Ux Consultant Name Role Phone Yara Schneider MD Primary Care Provider [phone] Mauri Roberts MD Primary Care Provider [phone] Encounter Details Date Type Department Care Team (Late st Contact Info) Description 09/01/2023 NicePeopleAtWork Message Enc [facility] Medical Group Family Medicine [facility] [address] [place] [address] Yara Schneider MD [address] [place] [address] Fluoxetine Social History Tobacco Use [...] Date Recorded Patient Health Questionnaire-2 Score 1 07/31/2023 Comments No Sex and Gender Information Value Date Recorded Sex Assigned at Female 08/21/2023 3:11 PM CDT Legal Sex Female 3:36 PM CLINICAL ADVISOR Gender Identity Female 11/15/2021 12:05 PM CLINICAL ADVISOR Sexual Orientation Straight 11/15/2021 12 :05 PM CLINICAL ADVISOR documented as of this encounter Plan of Treatment Not on file documented as of this encounter Visit Diagnoses Not on filedocumented in this encounter Additional Health Concerns Assessment Noted Time PHQ-9 Depression Total Score: 3 07/31/20 23 9:42 AM CDT documented as of this encounter Care Teams Ux Consultant Relationship Specialty Start Date End Date Yara Schneider MD PCP - General FAMILY PRACTICE 10/02/20 09/30/24 Mauri Roberts MD [address] [place] [address] PCP - General FAMILY PRACTICE 11/09/24 documented as of this encounter
--- OUTSIDE RECORDS SUMMARY | 2025-08-29 09:49 | XMS_ITS | Encounter Summary ---
Author Organization [facility] Address [facility] [place] [address] Care Team Providers Care Harm Reduction Worker Name Role Phone Yara Schneider MD Primary Care Provider [phone] Mauri Roberts MD Primary Care Provider [phone] Encounter Details Date Type Department Care Team (Late st Contact Info) Description 05/21/2022 Roovyn Message Enc [facility] Medical Group Family Medicine [facility] [address] [place] [address] Yara Schneider MD [address] [place] [address] New blood pressure meds Social History Tobacco Use Types Packs/Day Years [...] PM CDT Legal Sex Female 3:36 PM IMPROVEMENT MANAGER Gender Identity Female 11/15/2021 12:05 PM IMPROVEMENT MANAGER Sexual Orientation Straight 11/15/2021 12 :05 PM IMPROVEMENT MANAGER COVID-19 Exposure Response Date Recorded In the last 10 days, have yo u been in contact with someone who was confirmed or suspected to have Coronavirus/COVID-19? No / Unsure 05/23/2022 7:42 AM CDT documented as of this encounter Plan of Treatment Not on file documented as of this encounter Visit Diagnoses Not on filedocumented in this encounter Additional Health Concerns Assessment Noted Time PHQ-9 Depression Total Score: 7 05/01/20 22 1:03 PM CDT documented as of this encounter Care Teams Harm Reduction Worker Relationship Specialty Start Date End Date Yara Schneider MD PCP - General FAMILY PRACTICE 10/02/20 09/30/24 Mauri Roberts MD [address] [place] [address] PCP - General FAMILY PRACTICE 11/09/24 documented as of this encounter
--- OUTSIDE RECORDS SUMMARY | 2025-08-29 09:49 | XMS_ITS | Encounter Summary ---
Author Organization [facility] Address [address] [facility] [place] [address] Care Team Providers Care Sales Promotion Coordinator Name Role Phone Wally Carranza MD Primary Care Provider Unav ailable Encounter Details Date Type Department Care Team (Late st Contact Info) Description 11/26/2023 Lab Requisition [facility] - [facility] Lab [address] [facility], [place] [address] Amanda De La Rosa MD [address] [place] [address] Social History Tobacco Use Types Packs/Day Years Used Date Smoking Tobacco: Never Smokeless Tobacco: Never Alcohol Use Standard Drinks/Week Comments Yes 0 (1 standard drink = 0.6 oz pur e alcohol) social Comments No Sex and Gender Information Value Date Recorded Sex Assigned at Female 11/01/2021 2:46 PM TECHNOLOGY MANAGER Legal Sex Female 9:27 AM CDT Gender Identity Female 11/01/2021 2:46 PM TECHNOLOGY MANAGER Sexual Orientation Straight 11/01/2021 2: 46 PM TECHNOLOGY MANAGER documented as of this encounter Plan of Treatment Not on file documented as of this encounter Procedures Procedure Name Priority Date/Time Associated Diagnosis Comments DERMATOPATHOLOGY Routine 11/26/2023 9:56 AM TECHNOLOGY MANAGER documented in this encounter Results * DERMATOPATHOLOGY (11/26/2023 9:56 AM TECHNOLOGY MANAGER) Case Report Dermatopathology Report Case: [id number] Authorizing Provider: Amanda De La Rosa MD Collected: 11/26/2023 09:56 AM Ordering Location: [facility] DermPath Lab Received: 11/27/2023 10:26 AM Pathologist: Kentrell Nj MD Specimen: Skin, left cheek 4:00 PM [facility] DERMATOPATHOLOGY LABORATORY Final Diagnosis Specimen A. SKIN, left cheek: SOLAR LENTIGO (L81.4) 4:00 PM [facility] DERMATOPATHOLOGY LABORATORY at 1600 TECHNOLOGY MANAGER Clinical History R/O melanoma favor large cell acanthoma 4:00 PM [facility] DERMATOPATHOLOGY LABORATORY Gross Description Specimen A: Received is one formalin filled container labeled with the patient's name and designated left cheek. The specimen consists of a shave biopsy measuring 17x8x1 mm. Jar 0. 4:00 PM [facility] DERMATOPATHOLOGY LABORATORY Microscopic Description Specimen A. SKIN, left cheek: There is orthokeratosis. There is a slight increase in epidermal thickness with lentiginous buds of hyperpigmented keratinocytes. The number of melanocytes is only mildly increased. In the dermis, there is basophilic degeneration of elastic fibers. 4:00 PM [facility] DERMATOPATHOLOGY LABORATORY Disclaimer An external and internal positive and negative controls are appropriate for the histochemical, immunohistochemical and immunofluorescence stain(s) in this case (if any), except where stated explicitly. The performance characteristics of the stain(s) cited in this report were developed and its performance characteristic determined by the Dermatopathology Laboratory at [facility], directed by Dr. Tamara Nj. These tests need not be, and therefore are not, approved by the [place] Food and Drug Administration. The tests are used for clinical purposes. Billing Codes Specimen Charges Stain Charges 25969 1 4 4:00 PM [facility] DERMATOPATHOLOGY LABORATORY Embedded Images 4 4:00 PM [facility] DERMATOPATHOLOGY LABORATORY Pathology/Cytolo gy TISSUE SPECIMEN FROM SKIN / Unknown 11/26/2023 9:56 AM TECHNOLOGY MANAGER 11/27/2023 10:26 AM TECHNOLOGY MANAGER Amanda De La Rosa MD LAB - PATHOLOGY/CYTOLOGY ORD ERABLES Final Result DERMATOPATHOLOGY LABORATORY [facility] - Department of Dermatology [facility] Medicine [address] [place] [address], [address] [phone] documented in this encounter Visit Diagnoses Not on filedocumented in this encounter Care Teams Sales Promotion Coordinator Relationship Specialty Start Date End Date Wally Carranza MD PCP - General 04/27/19 documented as of this encounter
--- OUTSIDE RECORDS SUMMARY | 2025-08-29 09:49 | XMS_ITS | Encounter Summary ---
Author Organization [facility] Address [address] [place] [address] Care Team Providers Care Naval [employer]cre[employer] Name Role Phone Yara Schneider MD Primary Care Provider [phone] Mauri Roberts MD Primary Care Provider [phone] Encounter Details Date Type Department Care Team (Late st Contact Info) Description 02/24/2024 AppsBuildert Message Enc [facility] Medical Group Orthopedic & Sports Medicine - [place] [address] [place] [address] Marshall Lynn MD Physical Therapy Social History Tobacco Use Types [...] PM CDT Legal Sex Female 3:36 PM [facility] TECHNICIAN Gender Identity Female 11/15/2021 12:05 PM [employer] [employer] [facility] TECHNICIAN Sexual Orientation Straight 11/15/2021 12 :05 PM [facility] [employer] [facility] TECHNICIAN documented as of this encounter Plan of Treatment Not on file documented as of this encounter Visit Diagnoses Not on filedocumented in this encounter Additional Health Concerns Assessment Noted Time PHQ-9 Depression Total Score: 0 01/19/20 9:32 AM CDT documented as of this encounter Care Teams [employer] Relationship Specialty Start Date End Date Yara Schneider MD PCP - General FAMILY PRACTICE 10/02/20 09/30/24 Mauri Roberts MD [address] [place] [address] PCP - General FAMILY PRACTICE 11/09/24 documented as of this encounter
--- OUTSIDE RECORDS SUMMARY | 2025-08-29 09:49 | XMS_ITS | Encounter Summary ---
Author Organization [facility] Address [facility] [place] [address] Care Team Providers Care Hospital Insurance Representative Name Role Phone Yara Schneider MD Primary Care Provider [phone] Mauri Roberts MD Primary Care Provider [phone] Encounter Details Date Type Department Care Team (Late st Contact Info) Description 08/02/2022 Worksoft Message Enc [facility] Medical Group Family Medicine [facility] [address] [place] [address] Yara Schneider MD [address] [place] [address] 40 mg Fluoxetine Social History Tobacco Use Types Packs/Day [...] 3, please move on to questions 3-9 1 08/01/2022 Comments No Sex and Gender Information Value Date Recorded Sex Assigned at Female 08/21/2023 3:11 PM CDT Legal Sex Female 3:36 PM GROUP THERAPIST Gender Identity Female 11/15/2021 12:05 PM GROUP THERAPIST Sexual Orientation Straight 11/15/2021 12 :05 PM GROUP THERAPIST COVID-19 Exposure Response Date Recorded In the last 10 days, have yo u been in contact with someone who was confirmed or suspected to have Coronavirus/COVID-19? No / Unsure 08/01/2022 7:05 AM CDT documented as of this encounter Progress Notes * Yara Schneider MD - 08/02/2022 5:47 PM CDT Called pt pt confirm she I taking Fluoxetine 40mg po qd. Pt confirmed this dose. She was taking tvy75ty tabs until she was out of those. New Fluoxetine 40mg po qd rx sent to pharmacy. Thanks! ~ Dr Gutierrez * Yara Schneider MD - 08/02/2022 5:42 PM CDTFrom: Yana Candelaria To: Dr. Yara Schneider Sent: 08/02/2022 9:39 AM CDT Subject: 40 mg Fluoxetine The prescription for 40 mg of Fluoxetine needs to have a new script called in to [facility]. They just have the 20 mg on file for refill for some reason. Thank you. And thank you for spending so much time with me yesterday, especially regarding my fractures. documented in this encounter Plan of Treatment Not on file documented as of this encounter Visit Diagnoses Not on filedocumented in this encounter Additional Health Concerns Assessment Noted Time PHQ-9 Depression Total Score: 6 08/01/20 22 7:40 AM CDT documented as of this encounter Care Teams Hospital Insurance Representative Relationship Specialty Start Date End Date Yara Schneider MD PCP - General FAMILY PRACTICE 10/02/20 09/30/24 [place] [address] [place], [place] [phone] PCP - General FAMILY PRACTICE 11/09/24 documented as of this encounter
--- OUTSIDE RECORDS SUMMARY | 2025-08-29 09:49 | XMS_ITS | Encounter Summary ---
Author Organization [facility] Address [address] [place] [address] Care Team Providers Care Graphic Editor Name Role Phone Yara Schneider MD Primary Care Provider [phone] Mauri Roberts MD Primary Care Provider [phone] Encounter Details Date Type Department Care Team (Late st Contact Info) Description 06/05/2022 TelemetryWebt Message Enc [facility] Medical Group Family Medicine [facility] [address] [place] [address] Yara Schneider MD [address] [place] [address] Blood pressure readings before evening appt. Social History Tobacco Use Types Packs/Day Years [...] please move on to questions 3-9 1 06/05/2022 Comments No Sex and Gender Information Value Date Recorded Sex Assigned at Female 08/21/2023 3:11 PM CDT Legal Sex Female 3:36 PM FISHING INSTRUCTOR Gender Identity Female 11/15/2021 12:05 PM FISHING INSTRUCTOR Sexual Orientation Straight 11/15/2021 12 :05 PM FISHING INSTRUCTOR COVID-19 Exposure Response Date Recorded In the last 10 days, have yo u been in contact with someone who was confirmed or suspected to have Coronavirus/COVID-19? No / Unsure 06/05/2022 11:50 AM CDT documented as of this encounter Progress Notes * Yara Schneider MD - 06/05/2022 11:55 AM CDT Spoke with pt on VV today. Thanks! ~Dr Gutierrez documented in this encounter Plan of Treatment Not on file documented as of this encounter Visit Diagnoses Not on filedocumented in this encounter Additional Health Concerns Assessment Noted Time PHQ-9 Depression Total Score: 4 06/05/20 22 11:52 AM CDT documented as of this encounter Care Teams Graphic Editor Relationship Specialty Start Date End Date Yara Schneider MD PCP - General FAMILY PRACTICE 10/02/20 09/30/24 Mauri Roberts MD [address] [place] [address] PCP - General FAMILY PRACTICE 11/09/24 documented as of this encounter
--- OUTSIDE RECORDS SUMMARY | 2025-08-29 09:49 | XMS_ITS | Encounter Summary ---
Author Organization [facility] Address [facility] [place] [address] Care Team Providers Care Road Mender Name Role Phone Yara Schneider MD Primary Care Provider [phone] Mauri Roberts MD Primary Care Provider [phone] Encounter Details Date Type Department Care Team (Late st Contact Info) Description 03/15/2022 PolyActiva Message Enc [facility] Medical Group Family Medicine [address] [address] Tomas, [facility] Provider voicemail follow up Social History Tobacco Use Types Packs/Day Years [...] please move on to questions 3-9 2 02/28/2022 Comments No Sex and Gender Information Value Date Recorded Sex Assigned at Female 08/21/2023 3:11 PM CDT Legal Sex Female 3:36 PM RAMPMAN Gender Identity Female 11/15/2021 12:05 PM RAMPMAN Sexual Orientation Straight 11/15/2021 12 :05 PM RAMPMAN COVID-19 Exposure Response Date Recorded In the last 10 days, have yo u been in contact with someone who was confirmed or suspected to have Coronavirus/COVID-19? No / Unsure 02/28/2022 8:42 AM CDT documented as of this encounter Plan of Treatment Not on file documented as of this encounter Visit Diagnoses Not on filedocumented in this encounter Additional Health Concerns Assessment Noted Time PHQ-9 Depression Total Score: 5 02/29/20 22 9:00 AM CDT documented as of this encounter Care Teams Road Mender Relationship Specialty Start Date End Date Yara Schneider MD PCP - General FAMILY PRACTICE 10/02/20 09/30/24 Mauri Roberts MD [address] [place] [address] PCP - General FAMILY PRACTICE 11/09/24 documented as of this encounter
--- OUTSIDE RECORDS SUMMARY | 2025-08-29 09:49 | XMS_ITS | Encounter Summary ---
Author Organization [facility] Address [address] [place] [address] Care Team Providers Care 411 Directory Assistance Operator Name Role Phone Yara Schneider MD Primary Care Provider [phone] Mauri Roberts MD Primary Care Provider [phone] Encounter Details Date Type Department Care Team (Late st Contact Info) Description 01/01/2024 RidePost Message Enc [facility] Medical Group Family Medicine [facility] [address] [place] [address] Yara Schneider MD [address] [place] [address] Lab work Social History Tobacco Use Types Packs/Day Years [...] PM CDT Legal Sex Female 3:36 PM DIRT SHOVELER Gender Identity Female 11/15/2021 12:05 PM DIRT SHOVELER Sexual Orientation Straight 11/15/2021 12 :05 PM DIRT SHOVELER documented as of this encounter Progress Notes * Yara Schneider MD - 01/19/2024 9:59 AM CDT Discussed results with patient and plan going forward in clinic. * Yara Schneider MD - 01/07/2024 7:01 AM CST Please email or put lab orders up front for pt depending on her preference. Thanks! ~Dr Gutierrez SHOVELER * Yara Schneider MD - 01/07/2024 6:50 AM CSTFrom: Yana Candelaria To: Dr. Yara Schneider Sent: 01/01/2024 4:16 PM DIRT SHOVELER Subject: Lab work Dr. Schneider, I have an upcoming appt. January 18. Should I have lab work done before coming in so wecan discuss medications? If so, is your office doing that again? If not I will go to Related Content Database (RCDb). Let me know. Thanks you. SHOVELER documented in this encounter Plan of Treatment Not on file documented as of this encounter Procedures Procedure Name Priority Date/Time Associated Diagnosis Comments HEPATITIS C ANTIBODY W/RFX TO HCV RNA Routine 01/13/2024 9:11 AM CDT Encounter for hepatitis C screening test for low risk patient TSH W/REFLEX Routine 01/13/2024 9:11 AM CDT Hyperlipidemia, unspecified hyperlipidemia type COMPREHENSIVE METABOLIC PANEL Routine 01/13/2024 9:11 AM CDT Hyperlipidemia, unspecified hyperlipidemia type LIPID PANEL Routine 01/13/2024 9:11 AM CDT Hyperlipidemia, unspecified hyperlipidemia type documented in this encounter Results * HEPATITIS C ANTIBODY W/RFX TO HCV RNA ([facility] ONLY) (01/13/2024 9:11 AM CDT) Pathologist [facility] HEPATITIS C AB NON-REACT SEKOU NON-REACT SEKOU [facility] Comment: HCV antibody was non-reactive. There is no laboratory evidence of HCV infection. In most cases, no further action is required. However, if recent HCV exposure is suspected, a test for HCV RNA (test code 89009) is suggested. For additional information please refer to http://education.[employer]/faq/GBZ85n7 (This link is being provided for informational/ educational purposes only.) 01/13/2024 9:11 AM CDT 01/13/2024 9:11 AM CDT Narrative [facility] [place] [facility] - 01/14/2024 4:15 AM CDT FASTING:YES FASTING: YES Resulting Agency Comment Performing Organization Information: Site ID: [place] Name: [employer] Address: [address] [place] [address] Director: Eve Medina MD us Yara Schneider MD LABORATORY Final Result [facility] [place] [address] [place] [address] * (ABNORMAL) COMPREHENSIVE METABOLIC PANEL (01/13/2024 9:11 AM CDT) Pathologist [facility] GLUCOSE 101(H) 65 - 99 mg/dL [facility] Comment: Fasting reference interval For someone without known diabetes, a glucose value between 100 and 125 mg/dL is consistent with prediabetes and should be confirmed with a follow-up test. BUN 14 7 - 25 mg/dL [facility] CREATININE S/P/B 0.67 0.60 - 1.00 mg/dL [facility] [employer] [facility] GFR ESTIMATE 94 > OR = 60 mL/min/1. 73m2 [facility] BUN CREATININE RATIO SEE NOTE: 6 - 22 (calc) [facility] Comment: Not Reported: BUN and Creatinine are within reference range. SODIUM S/P/B 132(L) 135 - 146 mmol/L [facility] [employer] [facility] POTASSIUM S/P/B 4.1 3.5 - 5.3 mmol/L [facility] [employer] [facility] CHLORIDE S/P/B 94(L) 98 - 110 mmol/L [facility] [employer] [facility] CO2 29 20 - 32 mmol/L [facility] [employer] [facility] CALCIUM S/P/B 9.6 8.6 - 10.4 mg/dL [facility] [employer] [facility] TOTAL PROTEIN S/P/B 7.2 6.1 - 8.1 g/dL [facility] [employer] [facility] ALBUMIN S/P/B 4.5 3.6 - 5.1 g/dL [facility] [employer] [facility] GLOBULIN 2.7 1.9 - 3.7 g/dL (calc) [facility] [employer] [facility] ALBUMIN/GLOBULI N RATIO 1.7 1.0 - 2.5 (calc) [facility] BILIRUBIN TOTAL S/P/B 0.6 0.2 - 1.2 mg/dL [facility] [employer] [facility] ALKALINE PHOSPHATASE S/P/B 96 37 - 153 U/L [facility] AST 21 10 - 35 U/L [facility] ALT 14 6 - 29 U/L [facility] 01/13/2024 9:11 AM CDT 01/13/2024 9:11 AM CDT Narrative [facility] - [place] [facility] - 01/14/2024 4:15 AM CDT FASTING:YES FASTING: YES Resulting Agency Comment Performing Organization Information: Site ID: [place] Name: [employer] (RCD[employer]) [employer] Address: [address] [address] Director: Eve Medina MD Yara Schneider MD LABORATORY Final Result [facility] [place] [facility] [employer] [facility] [address] [facility] [place] [address], [place] * LIPID PANEL (01/13/2024 9:11 AM CDT) Pathologist [facility] CHOLESTEROL 190 <200 mg/dL [facility] HDL 95 > OR = 50 mg/dL [facility] TRIGLYCERIDES 61 <150 mg/dL [facility] LDL (CALCULATED) 81 mg/dL (calc) [facility] Comment: Reference range: <100 Desirable range <100 mg/dL for primary prevention; <70 mg/dL for patients with CHD or diabetic patients with > or = 2 CHD risk factors. LDL-C is now calculated using the Mary calculation, which is a validated novel method providing better accuracy than the Friedewald equation in the estimation of LDL-C. Mike SS et al. ZEFERINO. 2013;310(19): 9150-4671 (http://education.[employer]/faq/ZXI680) CHOL/HDL RATIO 2.0 <5.0 (calc) [facility] NON HDL CHOLESTEROL 95 <130 mg/dL (calc) [facility] Comment: For patients with diabetes plus 1 major ASCVD risk factor, treating to a non-HDL-C goal of <100 mg/dL (LDL-C of <70 mg/dL) is considered a therapeutic option. 01/13/2024 9:11 AM CDT 01/13/2024 9:11 AM CDT Narrative [facility] MEDRANO ORDERS - 01/14/2024 4:15 AM CDT FASTING:YES FASTING: YES Resulting Agency Comment Performing Organization Information: Site ID: [place] Name: [facility] Address: [address] [facility] [place] [address] Director: Eve Medina MD Yara Schneider MD LABORATORY Final Result [facility] [address] [facility] [place] [address], * TSH W/REFLEX (01/13/2024 9:11 AM CDT) [facility] TSH 1.10 0.40 - 4.50 mIU/L [facility] 01/13/2024 9:11 AM CDT 01/13/2024 9:11 AM CDT Narrative [facility] [place] [facility] - 01/14/2024 4:15 AM CDT FASTING:YES FASTING: YES Resulting Agency Comment Performing Organization Information: Site ID: [place] Name: Melissa [facility] Address: [address] [place] [address] Director: Eve Medina MD us Yara Schneider MD LABORATORY Final Result [facility] [place] [facility] [address] [place] [place], [place] [address] documented in this encounter Visit Diagnoses Diagnosis Hyperlipidemia, unspecified hyperlipidemia type- Primary Encounter for hepatitis C screening test for low risk patient documented in this encounter Additional Health Concerns Assessment Noted Time PHQ-9 Depression Total Score: 3 10/06/20 23 8:54 AM DIRT SHOVELER documented as of this encounter Care Teams 411 Directory Assistance Operator Relationship Specialty Start Date End Date Yara Schneider MD PCP - General FAMILY PRACTICE 10/02/20 09/30/24 Mauri Roberts MD [address] [place] [address] PCP - General FAMILY PRACTICE 11/09/24 documented as of this encounter
--- OUTSIDE RECORDS SUMMARY | 2025-08-29 09:49 | XMS_ITS | Encounter Summary ---
Author Organization [facility] Address [address] [place] [address] Care Team Providers Care Duplicating Machine Servicer Name Role Phone Yara Schneider MD Primary Care Provider [phone] Mauri Roberts MD Primary Care Provider [phone] Encounter Details Date Type Department Care Team (Late st Contact Info) Description 12/24/2023 T[facility] Message Enc [facility] Medical Group Orthopedic & Sports Medicine - [place] [address] [place] [address] Marshall Lynn MD Staph infection Social History Tobacco Use Types Packs/Day Years [...] PM CDT Legal Sex Female 3:36 PM HIGH SCHOOL ASSISTANT PRINCIPAL Gender Identity Female 11/15/2021 12:05 PM HIGH SCHOOL ASSISTANT PRINCIPAL Sexual Orientation Straight 11/15/2021 12 :05 PM HIGH SCHOOL ASSISTANT PRINCIPAL documented as of this encounter Plan of Treatment Not on file documented as of this encounter Visit Diagnoses Not on filedocumented in this encounter Additional Health Concerns Assessment Noted Time PHQ-9 Depression Total Score: 3 10/06/20 23 8:54 AM HIGH SCHOOL ASSISTANT PRINCIPAL documented as of this encounter Care Teams Duplicating Machine Servicer Relationship Specialty Start Date End Date Yara Schneider MD PCP - General FAMILY PRACTICE 10/02/20 09/30/24 Mauri Roberts MD [address] [place] [address] PCP - General FAMILY PRACTICE 11/09/24 documented as of this encounter
--- OUTSIDE RECORDS SUMMARY | 2025-08-29 09:49 | XMS_ITS | Encounter Summary ---
Author Organization [facility] Address [address] [facility] [place] [address] Care Team Providers Care Steam Shovel Oiler Name Role Phone Wally Carranza MD Primary Care Provider Unav ailable Encounter Details Date Type Department Care Team (Late st Contact Info) Description 12/15/2020 Lab Requisition [facility] [address] [facility], [place] [address] Amanda De La Rosa MD [address] [place] [address] Social History Tobacco Use Types Packs/Day Years Used Date Smoking Tobacco: Never Smokeless Tobacco: Never Alcohol Use Standard Drinks/Week Comments Yes 0 (1 standard drink = 0.6 oz pur e alcohol) social Comments No Sex and Gender Information Value Date Recorded Sex Assigned at Female 11/01/2021 2:46 PM AUTOMOTIVE ACCESSORY INSTALLER Legal Sex Female 9:27 AM CDT Gender Identity Female 11/01/2021 2:46 PM AUTOMOTIVE ACCESSORY INSTALLER Sexual Orientation Straight 11/01/2021 2: 46 PM AUTOMOTIVE ACCESSORY INSTALLER documented as of this encounter Plan of Treatment Not on file documented as of this encounter Procedures Procedure Name Priority Date/Time Associated Diagnosis Comments DERMATOPATHOLOGY Routine 12/14/2020 12:0 0 AM AUTOMOTIVE ACCESSORY INSTALLER documented in this encounter Results * DERMATOPATHOLOGY (12/14/2020 12:00 AM AUTOMOTIVE ACCESSORY INSTALLER) Case Report Dermatopathology Report Case: [id number] Authorizing Provider: Amanda De La Rosa MD Collected: 12/14/2020 12:00 AM Ordering Location: [facility] Received: 12/15/2020 10:09 AM Pathologist: Talia Jeffers MD Specimen: Skin, right jaw line 11:43 AM [facility] DERMATOPATHOLOGY LABORATORY Final Diagnosis Specimen A. SKIN, right jaw line: EPIDERMOID CYST (L72.0) NOT PRESENT AT MARGIN 11:43 AM [facility] DERMATOPATHOLOGY LABORATORY at 1143 AUTOMOTIVE ACCESSORY INSTALLER Clinical History R/O cyst, ruptured epidermal 11:43 AM [facility] DERMATOPATHOLOGY LABORATORY Gross Description Specimen A: Received is one formalin filled container labeled with the patient's name and designated right jaw line. The specimen consists of a non-oriented ellipse of skin measuring 20x8x3 mm. The epidermal surface is unremarkable. The margin is inked green. The 12 o'clock and 6 o'clock tips are submitted in cassette 1. The remainder of the ellipse is serially sectioned and submitted in cassette 2. Jar 0. 11:43 AM [facility] DERMATOPATHOLOGY LABORATORY Microscopic Description Specimen A. SKIN, right jaw line: Within the dermis, there is a space lined by epithelium that resembles normal epidermis and the infundibular portion of the hair follicle. This lesion is not present at the margin of the specimen. 11:43 AM [facility] DERMATOPATHOLOGY LABORATORY Disclaimer An external and internal positive and negative controls are appropriate for the histochemical, immunohistochemical and immunofluorescence stain(s) in this case (if any), except where stated explicitly. The performance characteristics of the stain(s) cited in this report were developed and its performance characteristic determined by the Dermatopathology Laboratory at [facility], directed by Dr. Tamara Nj. These tests need not be, and therefore are not, approved by the [place] Food and Drug Administration. The tests are used for clinical purposes. Billing Codes Specimen Charges Stain Charges 39089 1 1 11:43 AM AUTOMOTIVE ACCESSORY INSTALLER DERMATOPATHOLOGY LABORATORY Embedded Images 1 11:43 AM AUTOMOTIVE ACCESSORY INSTALLER DERMATOPATHOLOGY LABORATORY Pathology/Cytolog y TISSUE SPECIMEN FROM SKIN / Unknown 12/14/2020 12/15/2020 10:09 AM AUTOMOTIVE ACCESSORY INSTALLER Amanda De La Rosa MD LAB - PATHOLOGY/CYTOLOGY ORD ERABLES Final Result DERMATOPATHOLOGY LABORATORY [facility] - Department of Dermatology [facility] Specialized Medicine [address] [place] [address], [address] [phone] documented in this encounter Visit Diagnoses Not on filedocumented in this encounter Care Teams Steam Shovel Oiler Relationship Specialty Start Date End Date Wally Carranza MD PCP - General 04/27/19 documented as of this encounter
--- OUTSIDE RECORDS SUMMARY | 2025-08-29 09:49 | XMS_ITS | Encounter Summary ---
Author Organization [facility] Address [address] [place] [address] Care Team Providers Care Boat Crew Deck Hand Name Role Phone Yara Schneider MD Primary Care Provider [phone] Mauri Roberts MD Primary Care Provider [phone] Encounter Details Date Type Department Care Team (Late st Contact Info) Description 01/01/2024 [place] [facility] Message Enc [facility] Medical Group Orthopedic & Sports Medicine - [place] [address] [place] [address] Marshall Lynn MD Bone stimulator Social History Tobacco Use Types Packs/Day Years [...] PM CDT Legal Sex Female 3:36 PM FEED MANAGEMENT ADVISOR Gender Identity Female 11/15/2021 12:05 PM FEED MANAGEMENT ADVISOR Sexual Orientation Straight 11/15/2021 12 :05 PM FEED MANAGEMENT ADVISOR documented as of this encounter Plan of Treatment Not on file documented as of this encounter Visit Diagnoses Not on filedocumented in this encounter Additional Health Concerns Assessment Noted Time PHQ-9 Depression Total Score: 3 10/06/20 23 8:54 AM FEED MANAGEMENT ADVISOR documented as of this encounter Care Teams Boat Crew Deck Hand Relationship Specialty Start Date End Date Yara Schneider MD PCP - General FAMILY PRACTICE 10/02/20 09/30/24 Mauri Roberts MD [address] [place] [address] PCP - General FAMILY PRACTICE 11/09/24 documented as of this encounter
--- OUTSIDE RECORDS SUMMARY | 2025-08-29 09:49 | XMS_ITS | Clinical Summary ---
Author Organization [facility] [employer] Address [address] [facility] [place] [address] Care Team Providers Care Director Pharmaceutical Name Role Phone Wally Carranza MD Primary Care Provider Unav ailable Source Comments [facility] [employer],non-owned Affiliates and Associated Physician Practices is amultiple site organization consisting of ambulatory clinics and hospital sitesin [place], [place], [place] and [place]. This disclosure is being madepursuant to the Care Everywhere program and may not contain all information available regarding this patient. Last updated 18.[facility] [employer] Allergies No known active allergies Medications * Be aware that medications may not be up to date on this document. Alwaysverify current medications with the patient. chlorthalidone (HYGROTON) 25 MG tablet Take 25 mg by mouth. 1/2 tab once daily 4 Active estradiol (ESTRACE) 2 MG tablet Take 2 mg by mouth once daily. 4 Active oxybutynin (DITROPAN) 5 MG tablet Take 5 mg by mouth once daily. 4 Active cetirizine (ZYRTEC ALLERGY) 10 MG gel capsule Take 10 mg by mouth once daily. Active Addison-3 Fatty Acids (FISH OIL) 1200 MG CAPS Take 1,200 mg by mouth 2 times daily. Active Calcium Carb-Cholecalci ferol (CALCIUM + D3 PO) Take by mouth 2 times daily. Active Cholecalciferol (VITAMIN D-3) 5000 UNITS TABS Take 5,000 Units by mouth 2 times daily. Active nystatin-triamc inolone (MYCOLOG) 735016-9.1 UNIT/GM-% cream Apply to affected area 2 times daily. 30 g 0 4 Active Additional Information Patient not taking.Reported on 04/27/2019 methylPREDNISol one (MEDROL DOSEPAK) 4 MG tablet as directed. 1 Packet 0 4 Active Additional Information Patient not taking.Reported on 04/27/2019 hydrocortisone (HYTONE) 2.5 % ointment APPLY TO AFFECTED AREA TWICE A DAY X3 DAYS THEN ONCE DAILY X3DAYS THEN EVERY OTHER DAY NEEDED 1 9 Active tolterodine ER 24hr (DETROL LA) 4 MG capsule Take 1 capsule by mouth once daily 9 Active tacrolimus (PROTOPIC) 0.1 % ointmentIndicat ions:Other allergic contact dermatitis Apply to red rash around eyes, around mouth, ears two times daily. 30 days supply. 100 g 2 9 Active Additional Information Patient not taking.Reported on 09/13/2019 Active Problems Problem Noted Date Diagnosed Date Other allergic contact dermatitis 04/27/2019 Immunizations Immunization Administration Dates Next Due INFLUENZA VACCINE 07/14/2019 Social History Tobacco Use Types Packs/Day Years Used Date Smoking Tobacco: Never Smokeless Tobacco: Never Alcohol Use Standard Drinks/Week Comments Yes 0 (1 standard drink = 0.6 oz pur e alcohol) social Comments No Sex and Gender Information Value Date Recorded Sex Assigned at Female 11/01/2021 2:46 PM STOKER ERECTOR AND SERVICER Legal Sex Female 9:27 AM CDT Gender Identity Female 11/01/2021 2:46 PM STOKER ERECTOR AND SERVICER Sexual Orientation Straight 11/01/2021 2: 46 PM STOKER ERECTOR AND SERVICER Last Filed Vital Signs Vital Sign Reading Time Taken Comments Blood Pressure 124/70 05/09/2014 9:46 AM CDT Pulse 88 05/09/2014 9:46 AM CDT Temperature 37.3 C (99.1 F) 05/09/2014 9:46 AM CDT Respiratory Rate 18 05/09/2014 9:46 AM CDT Oxygen Saturation 99% 05/09/2014 9:46 AM CDT Inhaled Oxygen Concentration - - Weight 55.2 kg (121 lb 12.8 oz) 05/09/2014 9:46 AM CDT Height 162.6 cm (5' 4) 05/09/2014 9:46 AM CDT Body Mass Index 20.91 05/09/2014 9:46 AM CDT Plan of Treatment Health Maintenance Due Date Last Done Comments BONE DENSITY TESTING 1955 COLOGUARD (AGES 45-75) - COLON CA SCREENING 1955 COLON MONITORING 1955 COLONOSCOPY - COLON CA SCREENING 1953 CT COLONOGRAPHY - COLON CA SCREENING 1955 Colorectal Cancer Screening 1955 FIT - COLON CA SCREENING 1955 FLEX SIG - COLON CA SCREENING 1955 LIPID TESTING 1955 MAMMOGRAM 1955 MEDICARE AWV 12 MONTHS 1955 HEPATITIS C SCREENING 11/12/1971 DTAP/TDAP/TD VACCINES (1 - Tdap) 1972 PNEUMOCOCCAL VACCINE 50+ (1 of 1 - PCV) 2003 ZOSTER VACCINE (1 of 2) 2003 DEPRESSION SCREENING 11/03/2024 COVID-19 VACCINE (4 - 2024- season) 2025 07/31/2021, 01/08/2021, 12/11/2020 INFLUENZA VACCINE (#1) 2025 , 07/29/2020, 07/14/2019, Additional history exists Respiratory Syncytial Virus (RSV) Vaccine Pt: or over 60 yrs (1 - 1-dose 75+ series) 2028 HEPATITIS B VACCINE Aged Out No longe r eligible based on patient's age to complete this topic HIB VACCINE Aged Out No longer eligi ble based on patient's age to complete this topic HPV VACCINE Aged Out No longer eligi ble based on patient's age to complete this topic MENINGOCOCCAL (Group B) VACCINE SHARED DECISION-MAKING Aged Out No longer eligible based on patient's age to complete this topic MENINGOCOCCAL GROUPS A/C/Y/W VACCINE Aged Out No longer eligible based on patient's age to complete this topic Insurance [facility] [address] Care Teams Director Pharmaceutical Relationship Specialty Start Date End Date Wally Carranza MD PCP - General 04/27/19
[2025-08-29 09:54] LABS: Hematocrit 37.1 % (37.0-47.0); Hemoglobin 12.1 g/dL (12.0-15.0); Immature Granulocyte Percent A 0.5 % (0-0.5); Lymphocytes Absolute Auto 0.79 K/mm3 (0.9-3.2); Mean Corpuscular HGB Conc 32.6 g/dl (32-36); Mean Corpuscular Hemoglobin 28.9 pg (26-34); Mean Corpuscular Volume 88.5 fl (80-100); Nucleated Red Blood Cells Absolute Auto 0.000 K/mm3 (0.0-0.012); Nucleated Red Blood Cells Perc 0.0 % (0.0-0.2); Platelet Count Result 209 k/mm3 (150-375); Red Blood Count 4.19 M/mm3 (4.2-5.4); White Blood Count 4.2 K/mm3 (4.5-10.0)
[2025-08-29 10:22] LABS: Alanine Aminotransferase 12 U/L (6-35); Albumin Level 4.3 g/dL (3.5-5.1); Alkaline Phosphatase 81 U/L (38-126); Anion Gap 4 mmol/L (4-12); Aspartate Amino Transferase 30 U/L (14-36); Bilirubin,Total 0.4 mg/dL (0.2-1.3); Blood Urea Nitrogen 15 mg/dL (7-17); Calcium 9.4 mg/dL (8.4-10.2); Carbon Dioxide 32 mmol/L (22-30); Chloride 95 mmol/L (98-107); Cholesterol 274 mg/dL (0-200); Estimated Glomerular Filt Rate > 60; Glucose 94 mg/dL (65-110); HDL Direct 83 mg/dL; Magnesium 1.9 mg/dL (1.6-2.3); Potassium 5.2 mmol/L (3.4-5.0); Sodium 131 mmol/L (137-145); Total Protein 7.4 g/dL (6.3-8.2); Triglycerides 67 mg/dL (<150)
[2025-08-29 11:15] LABS: Vitamin B12 845.0 pg/mL (239-931)
== END 2025-08-29 09:05 | disposition home or self-care (01) ==
PROVIDERS: PCP Family Medicine; Visit Provider Family Medicine
DX: M81.0 Age-related osteoporosis without current pathological fracture (principal); F41.9 Anxiety disorder, unspecified; E78.5 Hyperlipidemia, unspecified; I10 Essential (primary) hypertension
CPT/HCPCS: 36415; 80053; 80061; 82306; 82607; 83735; 85025